=== PATIENT | male | born 1980 | race African-American/Black ===

== ENCOUNTER 2016-11-15 09:49 | Emergency (ER) | payer SELFPAY ==
[2016-11-15] MEDS ORDERED: Proparacaine 0.5% Opth 15 ML BOT ONE (12:20)
[2016-11-15] MEDS ORDERED: Fluorescein Opthalmic Strip ONE (12:20)
[2016-11-15] MEDS ORDERED: Ibuprofen 800 MG TAB ONE (12:40)
== END 2016-11-15 13:07 | disposition home or self-care (01) ==
LOC: ERS 09:49
DX: S05.01XA Injury of conjunctiva and corneal abrasion without foreign body, right eye, initial encounter (principal); F17.210 Nicotine dependence, cigarettes, uncomplicated; X58.XXXA Exposure to other specified factors, initial encounter; Y99.0 Civilian activity done for income or pay
CPT/HCPCS: 99283

== ENCOUNTER 2017-01-17 16:08 | Emergency (ER) | payer SELFPAY ==
--- NOTE | 2017-01-17 18:03 | RAD ---
PA AND LATERAL CHEST X-RAY 01/17/17 HISTORY: Cough. COMPARISON: None available. FINDINGS: The cardiac silhouette is within normal limits. The lungs are expanded and clear. Osseous structures are intact. IMPRESSION: No acute cardiopulmonary process. POS: NEFTALIH
== END 2017-01-17 17:43 | disposition home or self-care (01) ==
LOC: ERS 16:08
DX: J20.9 Acute bronchitis, unspecified (principal); F17.210 Nicotine dependence, cigarettes, uncomplicated
CPT/HCPCS: 71020; 99406

== ENCOUNTER 2017-03-06 21:15 | Emergency (ER) | payer OTHER, SELFPAY ==
--- NOTE | 2017-03-06 22:10 | RAD ---
RIGHT HAND THREE VIEWS: 03/06/17 HISTORY: Right hand pain. FINDINGS/IMPRESSION: There is an angulated fracture involving the neck of the fifth metacarpal. POS: NEFTALIH
[2017-03-07] MEDS ORDERED: Ketorolac Tromethamine 30 MG/ML VIAL ONE (01:00)
== END 2017-03-07 01:20 | disposition home or self-care (01) ==
LOC: ERS 21:15
DX: S62.336A Displaced fracture of neck of fifth metacarpal bone, right hand, initial encounter for closed fracture (principal); F17.210 Nicotine dependence, cigarettes, uncomplicated; W22.01XA Walked into wall, initial encounter
CPT/HCPCS: 26600; 96372; J1885